=== PATIENT | female | born 1995 | race Caucasian/White ===

== ENCOUNTER 2016-08-31 14:30 | Emergency (ER) | payer BC ==
[~2016-08-31] VITALS: Ht 167.6 cm; Wt 111.4 kg
[~2016-08-31 14:30] MED LIST: AMOXICILLIN 8751 TAB PO; NORCO 325 MG-51 TAB PO
[2016-08-31 14:37] VITALS: BP 150/82; TEMP 99
[2016-08-31 15:43] LABS: PH 5 (5-8); URINE APPEARANCE Clear; URINE BACTERIA None Seen /hpf; URINE BILIRUBIN Negative (NEGATIVE); URINE BLOOD 1+ (NEGATIVE); URINE COLOR Yellow; URINE GLUCOSE Negative (NEGATIVE); URINE KETONE Negative (NEGATIVE); URINE UROBILINOGEN Negative (NEGATIVE); URINE WBC 0-2 /hpf
[2016-08-31] MEDS ORDERED: ULTRAM 50MG TAB50 MG PO (16:10)
[2016-08-31 16:14] VITALS: PULSE 90
[2016-08-31 17:46] LABS: CHLAMYDIA/TRACH by PCR Female NOT DETECTED; NEISSERIA GON by PCR Female NOT DETECTED
== END 2016-08-31 16:16 | disposition home or self-care (01) ==
LOC: COL.ER 14:30
PROVIDERS: Emergency Medicine
DX: R10.2 Pelvic and perineal pain (principal); R11.0 Nausea; R63.0 Anorexia; Z97.5 Presence of (intrauterine) contraceptive device

== ENCOUNTER 2016-10-15 07:53 | Emergency (ER) | payer BC ==
[~2016-10-15] VITALS: Ht 167.6 cm; Wt 125.0 kg
[~2016-10-15 07:53] MED LIST changes: +ULTRAM 50MG TAB50 MG PO
[2016-10-15 07:55] VITALS: TEMP 100.3
[2016-10-15 08:52] LABS: BASO % 0.1 % (0.0-2.0); EOS % 0.1 % (0-4.0); GRAN # 6.1 (1.4-6.5); GRAN % 87.4 % (42.2-75.2); HEMATOCRIT 38.5 % (37.0-47.0); HEMOGLOBIN 13.1 g/dl (12.5-16.0); LYMPH # 0.6 (1.2-3.4); MEAN CELL VOLUME 87 fl (80.0-100.0); MEAN CORPUSCULAR HEMOGLOBIN 30 pg (27.0-31.0); MEAN CORPUSCULAR HGB CONC 34 g/dl (33.0-37.0); MEAN PLATELET VOLUME 9.9 fl (7.4-10.4); MONO # 0.3 (0.1-0.6); MONO % 4.1 % (1.7-9.3); PLATELET COUNT 209 K/mm3 (130-400); RED BLOOD COUNT 4.41 M/mm3 (4.10-5.30); REDCELL DISTRIBUTION WIDTH-CV 12.8 % (11.5-14.5)
[2016-10-15 09:03] LABS: PH 5 (5-8); URINE APPEARANCE Hazy; URINE BACTERIA None Seen /hpf; URINE BILIRUBIN Negative (NEGATIVE); URINE BLOOD 2+ (NEGATIVE); URINE COLOR Amber; URINE GLUCOSE Negative (NEGATIVE); URINE KETONE 2+ (NEGATIVE); URINE UROBILINOGEN >=4.0 mg/dL (NEGATIVE)
[2016-10-15 09:17] LABS: ADJUSTED CALCIUM 8.6 mg/dL (8.4-10.2); ALBUMIN 4.1 gm/dL (3.5-5.0); BILIRUBIN,TOTAL 1.5 mg/dL (0.0-1.0); CALCIUM 8.7 mg/dL (8.4-10.2); CREATININE, serum 0.78 mg/dL (0.52-1.25); POTASSIUM 3.7 mmol/L (3.4-5.0); TOTAL PROTEIN 6.9 gm/dL (6.4-8.2)
[2016-10-15] MEDS ORDERED: NORCO 325 MG-51 TAB PO (10:03)
[2016-10-15] MEDS ORDERED: CIPRO 500MG TA500 MG PO (10:03)
[2016-10-15 11:10] VITALS: BP 129/81; PULSE 92
== END 2016-10-15 11:10 | disposition home or self-care (01) ==
LOC: COL.ER 07:53
PROVIDERS: Physician Assistant
DX: K50.00 Crohn's disease of small intestine without complications (principal); Z32.02 Encounter for pregnancy test, result negative
CPT/HCPCS: J1170; J2405; J7030; Q9967

== ENCOUNTER 2017-06-16 19:26 | Emergency (ER) | payer BC ==
[~2017-06-16 19:26] MED LIST changes: +CIPRO 500MG TA500 MG PO
[2017-06-16 19:36] VITALS: BP 141/94; TEMP 99
[2017-06-16 20:04] LABS: COLLECTION METHOD CLEAN CATCH
[2017-06-16 20:11] LABS: MUCOUS Present /lpf; PH 7 (5-8); URINE APPEARANCE Cloudy; URINE BACTERIA Rare /hpf; URINE BILIRUBIN Negative (NEGATIVE); URINE BLOOD Negative (NEGATIVE); URINE COLOR Yellow; URINE GLUCOSE Negative (NEGATIVE); URINE KETONE Negative (NEGATIVE); URINE LEUKOCYTE ESTERASE Negative (NEGATIVE); URINE NITRATE Negative (NEGATIVE); URINE PROTEIN(semi-quant) Negative (NEGATIVE); URINE RBC 0-2 /hpf; URINE UROBILINOGEN Negative (NEGATIVE)
[2017-06-16] MEDS ORDERED: MEDROL 4MG DOSPA4 MG PO (20:49)
[2017-06-16 21:15] VITALS: PULSE 94
== END 2017-06-16 21:16 | disposition home or self-care (01) ==
LOC: COL.ER 19:26
PROVIDERS: Family Medicine
DX: M54.12 Radiculopathy, cervical region (principal)